=== PATIENT | female | born 1985 | race American Indian/Alaskan Native ===

== ENCOUNTER 2017-12-12 11:11 | Outpatient (CLI) | payer MEDICAID ==
--- NOTE | 2017-12-12 14:08 | Ultrasound Report ---
BILATERAL DIGITAL DIAGNOSTIC MAMMOGRAM with CAD and RIGHT BREAST ULTRASOUND: 12/12/17 CLINICAL: Palpable right breast lump. COMPARISON:None. FINDINGS: The breasts are mostly fatty with a few bilateral retroareolar and upper outer scattered fibroglandular densities.1 cm right retroareolar mass has partially ill-defined margins and correlates with the palpable marker. A second oval circumscribed right upper-outer mass with a lobular margin is located approximately 16 cm from the nipple. The left breast is negative. Targeted ultrasound of the right breast demonstrated a rate or solid hypoechoic mass at 2 o'clock 3 cm from the nipple. It measures 5 x 5 x 7 mm and correlates with the inner retroareolar mammographic mass. A benign cyst at 2 o'clock 3 cm from the nipple measures 7 x 3 x 5 mm and has a mammographic correlate. A solid hypoechoic slightly irregular mass at 10 o'clock 15 cm from the nipple measures 1.3 x 0.6 x 0.9 cm. It correlates with the upper-outer mammographic mass. IMPRESSION: A suspicious 7 mm right breast mass at 2 o'clock 3 cm from the nipple and a suspicious 1.3 cm mass or abnormal lymph node at 10 o'clock 15 cm from the nipple. Recommend ultrasound-guided needle biopsy of both lesions. BI-RADS CATEGORY: 4--Suspicious I discussed the findings and the recommendation for needle core biopsy of the 2 right breast masses with the patient at the time of the examination. ACR BI-RADS MAMMOGRAPHIC CODES: 0 = Needs additional imaging evaluation; 1 = Negative; 2 = Benign; 3 = Probably benign; 4 = Suspicious; 5 = Malignant; 6 = Known biopsy-proven malignancy COMMENT: 1. Dense breast tissue, i.e., adenosis, fibrocystic changes, etc., may obscure an underlying neoplasm. 2. Approximately 10% of cancers are not detected with mammography. 3. A negative mammography report should not delay biopsy if a clinically suspicious mass is present. COMMENT: Patient follow-up letters are generated by our [employer] application.
== END 2017-12-12 11:12 | disposition home or self-care (01) ==
LOC: SPVWC 11:11
PROVIDERS: ATTEND Advanced Practice Midwife
DX: N63.12 Unspecified lump in the right breast, upper inner quadrant (principal); N60.01 Solitary cyst of right breast

== ENCOUNTER 2017-12-18 13:23 | Outpatient (CLI) | payer MEDICAID ==
--- NOTE | 2017-12-18 15:24 | Mammography Report ---
RIGHT DIGITAL DIAGNOSTIC MAMMOGRAM: 12/18/17 13:23:00 CLINICAL: For clip placement immediately status post ultrasound needle biopsy at 2 sites. COMPARISON:12/12/17 FINDINGS: Biopsy clips are now identified at 2 o'clock approximately 4 cm from the nipple and at 10 o'clock approximately 15 cm from the nipple. IMPRESSION: Concordant clip placement status post ultrasound guided needle biopsy at 2 sites. BI-RADS CATEGORY: 4--Suspicious Pathology pending.
--- NOTE | 2017-12-18 16:39 | Ultrasound Report ---
ULTRASOUND GUIDED NEEDLE CORE BIOPSY WITH CLIP PLACEMENT AT 2 SITES RIGHT BREAST : 12/18/17 CLINICAL: 2 right breast masses. COMPARISON :12/12/17 FINDINGS: The procedure was explained to the patient and informed consent was obtained. Ultrasound demonstrated the previously described solid masses at 10 o'clock 15 cm from the nipple and at 2 o'clock 3 cm from the nipple. The skin was prepped with Betadine and anesthetized with 1% lidocaine. Ultrasound needle core biopsy was performed at 2 o'clock through a small dermatotomy using ultrasound guidance, 2% lidocaine with epinephrine for deep anesthesia and a 14-gauge coaxial Bard biopsy device. Imaging demonstrated satisfactory sampling. Multiple cores were obtained and placed in formalin. A localizer clip was then placed within the lesion. The skin was prepped with Betadine and anesthetized with 1% lidocaine. Ultrasound needle core biopsy was performed at 10 o'clock through a small dermatotomy using ultrasound guidance, 2% lidocaine with epinephrine for deep anesthesia and a 14-gauge coaxial Bard biopsy device. Multiple cores were obtained and placed in formalin. A localizer clip was deployed within the lesion. Hemostasis was obtained both sites with minimal pressure and sterile dressings were applied. The patient tolerated the procedure well and there were no apparent complications. A two-view mammogram demonstrated concordant clip placement at 2 sites. She was discharged in good condition and was given instructions for wound care and followup. IMPRESSION: Uncomplicated ultrasound-guided needle core biopsy of two right breast masses .
== END 2017-12-18 13:24 | disposition home or self-care (01) ==
LOC: SPVWC 13:23
PROVIDERS: ATTEND Advanced Practice Midwife
DX: D24.1 Benign neoplasm of right breast (principal); R92.0 Mammographic microcalcification found on diagnostic imaging of breast
CPT/HCPCS: 19083; 19084; 77065; 88305; A4648

== ENCOUNTER 2021-08-25 09:59 | Outpatient (CLI) | payer MEDICAID ==
--- NOTE | 2021-08-25 11:48 | Ultrasound Report ---
BILATERAL DIGITAL DIAGNOSTIC MAMMOGRAM WITH CAD CONVENTIONAL, 08/25/2021 RIGHT LIMITED BREAST ULTRASOUND CLINICAL INFORMATION / INDICATION: Patient presents for evaluation of 2 areas of palpable concern in the right breast. Patient has history of prior benign right breast biopsies. TECHNIQUE: Digital bilateral mammographic imaging was performed. Spot compression views were obtained . Limited ultrasound was performed. This examination was interpreted with the benefit of Computer-Aid ed Detection (CAD) analysis. COMPARISON: Prior mammograms 12/18/2017 and 12/12/2017 FINDINGS: Breast Density: There are scattered areas of fibroglandular density. MAMMOGRAPHIC FINDINGS: No dominant mass, suspicious calcifications, or architectural distortion in ei ther breast. There is a stable oval circumscribed mass seen in the posterior upper outer quadrant of the right breast with associated biopsy clip, and a stable small nodule in the anterior subareolar ri ght breast also with associated biopsy clip. There has been no significant change compared with the p rior examination. There is no mammographic abnormality to account for the areas of palpable concern i n the upper outer quadrant of the right breast, therefore targeted right breast ultrasound was perfor med for further evaluation. ULTRASOUND FINDINGS: Targeted ultrasound evaluation was performed of the area of interest. Targeted ultrasound of the areas of palpable concern in the right breast 10 and 11:00 position located 13 cm from the nipple reveals normal fibroglandular tissue. No suspicious cystic or solid lesion identified . IMPRESSION: 1. There is no mammographic or sonographic abnormality to account for the areas of palpable concern i n the right breast, therefore clinical correlation is recommended. Follow up recommendation: Unless otherwise clinically indicated, recommend patient return to routine screening mammography at age 39. BI-RADS Category 2: BENIGN. A "normal" or negative report should not discourage follow up or biopsy of a clinically significant f inding. A written summary of these findings will be mailed to the patient. The patient will be entered into a mammography reporting system which will generate a reminder letter for the patient's next appointmen t at the appropriate interval. According to the [employer], yearly mammograms are recommended starting at age 40 and continuing as long as a woman is in good health. Breast MRI is recommended for women with an teetee roximately 20-25% or greater lifetime risk of breast cancer, including women with a strong family his tory of breast or ovarian cancer and women who have been treated for Hodgkin's disease. Signer Name: Magdalena Navarro MD Signed: 08/25/2021 11:43 AM Workstation Name: [id number]
== END 2021-08-25 10:00 | disposition home or self-care (01) ==
LOC: MAMMO 09:59
PROVIDERS: ATTEND Advanced Practice Midwife
DX: N63.11 Unspecified lump in the right breast, upper outer quadrant (principal); N60.01 Solitary cyst of right breast
CPT/HCPCS: 77066